=== PATIENT | male | born 1960 | race Caucasian/White ===

== ENCOUNTER 2016-10-17 15:39 | Emergency (ER) | payer BC ==
[2016-10-17] MEDS ORDERED: VYTORIN 10 MG-21 TAB PO (15:54)
[2016-10-17] MEDS ORDERED: LEVOTHYROXINE0.05 MG PO (15:54)
[2016-10-17] MEDS ORDERED: CEPHALEXIN500 M1 PO (16:31)
[2016-10-17 16:49] VITALS: BP 121/68
== END 2016-10-17 16:50 | disposition home or self-care (01) ==
LOC: ED 15:39
DX: S61.241A Puncture wound with foreign body of left index finger without damage to nail, initial encounter (principal); Z23 Encounter for immunization; X58.XXXA Exposure to other specified factors, initial encounter; Y93.89 Activity, other specified; Y92.096 Garden or yard of other non-institutional residence as the place of occurrence of the external cause
CPT/HCPCS: 90715

== ENCOUNTER 2018-05-28 11:47 | Emergency (ER) | payer OTHER ==
[~2018-05-28] VITALS: Ht 188 cm; Wt 97.7 kg
[~2018-05-28 11:47] MED LIST: CEPHALEXIN500 M1 PO; LEVOTHYROXINE0.05 MG PO; VYTORIN 10 MG-21 TAB PO
[2018-05-28] MEDS ORDERED: AMBIEN5 M1 PO (12:44)
[2018-05-28] MEDS ORDERED: CEPHALEXIN500 M1 PO (13:30)
[2018-05-28] MEDS ORDERED: NORCO 325 MG-51 TA1 PO (13:30)
[2018-05-28 13:58] VITALS: BP 128/75
== END 2018-05-28 13:22 | disposition home or self-care (01) ==
LOC: ED 11:47
DX: S61.012A Laceration without foreign body of left thumb without damage to nail, initial encounter (principal); W29.8XXA Contact with other powered hand tools and household machinery, initial encounter; Y92.009 Unspecified place in unspecified non-institutional (private) residence as the place of occurrence of the external cause; E78.5 Hyperlipidemia, unspecified; Z79.899 Other long term (current) drug therapy

== ENCOUNTER → 2018-05-31 | Outpatient (CLI) | payer OTHER ==
[~2018-05-31] VITALS: Ht 188 cm; Wt 97.7 kg
[~2018-05-31] MED LIST changes: +AMBIEN5 M1 PO; +NORCO 325 MG-51 TA1 PO
[2018-05-31 10:11] VITALS: BP 128/75
== END ==
LOC: AMSURD 09:51
DX: Z48.00 Encounter for change or removal of nonsurgical wound dressing (principal); T14.8XXA Other injury of unspecified body region, initial encounter

== ENCOUNTER 2018-06-06 18:56 | Emergency (ER) | payer OTHER ==
[2018-06-06 19:20] VITALS: BP 121/82
== END 2018-06-06 19:20 | disposition home or self-care (01) ==
LOC: ED 18:56
DX: Z48.02 Encounter for removal of sutures (principal)

== ENCOUNTER → 2021-08-05 | Outpatient (CLI) | payer OTHER | LOC: AMSURD 10:41 | DX: Z01.818 Encounter for other preprocedural examination (principal); I45.10 Unspecified right bundle-branch block ==

== ENCOUNTER → 2023-09-06 | Day surgery (SDC) | payer BC ==
[~2023-09-06] MED LIST changes: +fentaNYL 100 MCG/2 ML VIAL ONE
== END ==
LOC: MSO 09:22
DX: D12.3 Benign neoplasm of transverse colon (principal); D50.9 Iron deficiency anemia, unspecified
CPT/HCPCS: 00812; J2704; J3010; J7120